=== PATIENT | female | born 1975 | race Caucasian/White ===

== ENCOUNTER 2020-06-19 10:47 | Outpatient (CLI) | payer MEDICARE, MEDICAID, SELFPAY ==
[2020-06-19 11:20] LABS: Basophils Absolute Auto 0.1 K/mm3 (0.0-0.1); Basophils Percent Auto 0.6 % (0.2-1.2); Eosinophils Absolute Auto 0.2 K/mm3 (0-0.3); Eosinophils Percent Auto 2.7 % (0-4.4); Hematocrit 42.3 % (37.0-47.0); Hemoglobin 13.6 g/dL (12.0-15.0); Immature Granulocyte Absolute 0.04 K/mm3 (0.00-0.031); Immature Granulocyte Percent A 0.5 % (0-0.5); Lymphocytes Absolute Auto 2.25 K/mm3 (0.9-3.2); Lymphocytes Percent Auto 27.1 % (18.3-44.2); Mean Corpuscular HGB Conc 32.2 g/dl (32-36); Mean Corpuscular Hemoglobin 28.5 pg (26-34); Mean Corpuscular Volume 88.7 fl (80-100); Mean Platelet Volume 10.5 fl (7.4-10.4); Monocytes Absolute Auto 0.6 K/mm3 (0.1-0.6); Monocytes Percent Auto 7.1 % (2.6-8.5); Neutrophils Absolute Auto 5.1 K/mm3 (1.3-6.7); Platelet Count Result 272 k/mm3 (150-375); Red Blood Count 4.77 M/mm3 (4.2-5.4); Red Cell Distribution Width 13.6 % (11.5-14.5); White Blood Count 8.3 K/mm3 (4.5-10.0)
[2020-06-19 11:38] LABS: Anion Gap 5 mmol/L (8-16); Blood Urea Nitrogen 11 mg/dL (7-17); Calcium 8.9 mg/dL (8.4-10.2); Carbon Dioxide 36 mmol/L (22-30); Chloride 96 mmol/L (98-107); Estimated Glomerular Filt Rate > 60; Glucose 234 mg/dL (65-105); Potassium 4.4 mmol/L (3.4-5.0); Sodium 137 mmol/L (137-145)
[2020-06-19 11:41] LABS: NT Pro B Type Natriuretic Pept 178 PG/ML (5-100)
== END 2020-06-19 10:48 | disposition home or self-care (01) ==
PROVIDERS: PCP Family Medicine; Visit Provider Family Medicine
DX: R60.1 Generalized edema (principal)
CPT/HCPCS: 36415; 80048; 83880; 85025

== ENCOUNTER 2020-07-19 07:59 | Outpatient (CLI) | payer MEDICARE, MEDICAID, SELFPAY ==
--- NOTE | 2020-07-19 08:08 | ECHO_ITS ---
Patient Info Name: Diane Hua Age: 45 years : 1975 Gender: Female Ht: 66 in Wt: 351 lbs BSA: 2.82 m2 HR: 85 bpm BP: 130 / 97 mmHg Technical Quality: Poor Exam Date: 07/19/2020 8:26 AM Exam Location: [facility] Pulmonary Patient Status: Outpatient Admit Date: 07/19/2020 Staff Ordering Physician: Pavan Ramirez MD Public Speaking Coach: Wiley Cardozo RDCS, RT Attending Provider: Pavan Ramirez MD Referring Physician: James GRAJEDA; Exam Type: CA echo doppler color flow Study Info Indications R60.1 - Generalized edema Complete two-dimensional, color flow and Doppler transthoracic echocardiogram is performed. Summary 1. Complete two-dimensional, color flow and Doppler transthoracic echocardiogram is performed. 2. Technically suboptimal study due to poor sonographic images. Subcostal images were not acquired. 3. Left ventricular chamber dimension is normal. 4. Left ventricular systolic function is normal, estimated at 60-65%. 5. The left ventricular diastolic function is normal. 6. E/e' 4 is not elevated. Left Ventricle Technically suboptimal study due to poor sonographic images. Subcostal images were not acquired. E/e' 4 is not elevated. Left ventricular chamber dimension is normal. Left ventricular systolic function is normal, estimated at 60-65%. The left ventricular diastolic function is normal. Right Ventricle Right ventricular chamber dimension is not well visualized. Left Atria Left atrial chamber dimension is normal. Right Atria Right atrial chamber dimension is not well visualized. Aortic Valve The aortic valve is trileaflet. There is no aortic valve stenosis. There is no aortic valve regurgitation. Pulmonic Valve There is no pulmonic regurgitation. Mitral Valve There is no mitral valve stenosis. There is no mitral valve regurgitation. Tricuspid Valve There is no tricuspid valve regurgitation. Pericardium/Pleural There is no pericardial effusion. Inferior Vena Cava Inferior vena cava is not well visualized. Aorta The aortic root size at the sinus of Valsalva is normal. Left Ventricular Outflow Tract Name Value Normal LVOT 2D LVOT Diameter 2.1 cm LVOT Doppler LVOT Peak Gradient 4 mmHg LVOT Mean Gradient 2 mmHg LVOT VTI 16 cm LVOT VTI/AV VTI Ratio 0.8 LVOT Stroke Volume 58 ml LVOT CO 4.6 l/min LVOT CI 1.6 l/min/m2 Mitral Valve Name Value Normal MV Doppler MV Decel [place] 251 cm/s2 MV PHT 67 ms MV Area (PHT) 3.3 cm2 4.0-5.0 MV Diastolic Function
== END 2020-07-19 08:00 | disposition home or self-care (01) ==
PROVIDERS: PCP Family Medicine; Visit Provider Family Medicine
DX: R60.1 Generalized edema (principal)
CPT/HCPCS: 93306

== ENCOUNTER 2020-10-05 15:00 | Outpatient (CLI) | payer MEDICARE, MEDICAID, SELFPAY ==
[2020-10-05 15:56] LABS: Cholesterol 239 mg/dL (0-200); HDL Direct 38 mg/dL; Triglycerides 293 mg/dL (<150)
[2020-10-05 16:07] LABS: LDL Cholesterol Direct 138 mg/dL
[2020-10-05 16:37] LABS: Alanine Aminotransferase 29 U/L (4-35); Albumin Level 4.1 g/dL (3.5-5.1); Alkaline Phosphatase 73 U/L (38-126); Anion Gap 13 mmol/L (8-16); Aspartate Amino Transferase 39 U/L (14-36); Bilirubin,Total 0.7 mg/dL (0.2-1.3); Blood Urea Nitrogen 25 mg/dL (7-17); Calcium 9.7 mg/dL (8.4-10.2); Carbon Dioxide 37 mmol/L (22-30); Chloride 84 mmol/L (98-107); Estimated Glomerular Filt Rate 23; Glucose 220 mg/dL (65-105); Potassium 2.3 mmol/L (3.4-5.0); Sodium 134 mmol/L (137-145)
[2020-10-05 17:19] LABS: Free T4 Free Thyroxine 1.35 ng/mL (0.78-2.19)
== END 2020-10-05 15:01 | disposition home or self-care (01) ==
PROVIDERS: PCP Family Medicine; Referring Provider Physician Assistant Medical; Visit Provider Internal Medicine Endocrinology, Diabetes & Metabolism
DX: E11.65 Type 2 diabetes mellitus with hyperglycemia (principal); E78.5 Hyperlipidemia, unspecified; E87.6 Hypokalemia
CPT/HCPCS: 36415; 80053; 80061; 84439; 84443

== ENCOUNTER 2021-01-25 11:57 | Outpatient (CLI) | payer MEDICARE, MEDICAID, SELFPAY ==
[2021-01-25 13:21] LABS: Pregnancy On Board Control Positive; Urine Pregnancy Test Negative
[2021-01-25 14:07] LABS: Alanine Aminotransferase 16 U/L (4-35); Albumin Level 4.5 g/dL (3.5-5.1); Alkaline Phosphatase 103 U/L (38-126); Aspartate Amino Transferase 20 U/L (14-36); Bilirubin,Total 0.5 mg/dL (0.2-1.3); Blood Urea Nitrogen 19 mg/dL (7-17); Calcium 9.6 mg/dL (8.4-10.2); Carbon Dioxide > 40 mmol/L (22-30); Chloride 90 mmol/L (98-107); Estimated Glomerular Filt Rate 35; Glucose 140 mg/dL (65-110); Potassium 3.1 mmol/L (3.4-5.0); Sodium 138 mmol/L (137-145)
[2021-01-25 16:58] LABS: Creatinine Urine 177.8 mg/dL
[2021-01-25 17:02] LABS: MALB Creatinine Ratio 7.6 mg/g (0-30); Microalbumin Urine Random 13.5 mg/L (0-16.7)
[2021-01-29 07:07] LABS: FSH 23.6 mIU/mL (***)
[2021-01-31 15:52] LABS: Estrogen 271.8 pg/mL
== END 2021-01-25 11:58 | disposition home or self-care (01) ==
PROVIDERS: PCP Family Medicine; Visit Provider Internal Medicine Endocrinology, Diabetes & Metabolism
DX: E11.65 Type 2 diabetes mellitus with hyperglycemia (principal); E78.5 Hyperlipidemia, unspecified; N91.2 Amenorrhea, unspecified
CPT/HCPCS: 36415; 80053; 81025; 82043; 82672; 83001

== ENCOUNTER 2021-07-16 10:13 | Outpatient (CLI) | payer MEDICARE, MEDICAID, SELFPAY ==
[2021-07-16 11:03] LABS: Alanine Aminotransferase 17 U/L (4-35); Albumin Level 4.3 g/dL (3.5-5.1); Alkaline Phosphatase 101 U/L (38-126); Anion Gap 7 mmol/L (8-16); Aspartate Amino Transferase 24 U/L (14-36); Bilirubin,Total 0.4 mg/dL (0.2-1.3); Blood Urea Nitrogen 30 mg/dL (7-17); Calcium 9.1 mg/dL (8.4-10.2); Carbon Dioxide 36 mmol/L (22-30); Chloride 90 mmol/L (98-107); Cholesterol 211 mg/dL (0-200); Estimated Glomerular Filt Rate 38; Glucose 212 mg/dL (65-110); HDL Direct 34 mg/dL; Sodium 133 mmol/L (137-145); Triglycerides 311 mg/dL (<150)
[2021-07-16 11:09] LABS: Creatinine Urine 181.4 mg/dL
[2021-07-16 11:12] LABS: MALB Creatinine Ratio 44.3 mg/g (0-30); Microalbumin Urine Random 80.3 mg/L (0-16.7)
[2021-07-16 11:15] LABS: LDL Cholesterol Direct 123 mg/dL
[2021-07-16 12:01] LABS: Free T4 Free Thyroxine 1.18 ng/mL (0.78-2.19)
== END 2021-07-16 10:14 | disposition home or self-care (01) ==
PROVIDERS: PCP Family Medicine; Visit Provider Nurse Practitioner Family
DX: E11.65 Type 2 diabetes mellitus with hyperglycemia (principal); E78.5 Hyperlipidemia, unspecified
CPT/HCPCS: 36415; 80053; 80061; 82043; 82607; 84439; 84443

== ENCOUNTER 2022-11-06 17:16 | Outpatient (CLI) | payer MEDICARE, MEDICAID, SELFPAY ==
[2022-11-06 17:39] LABS: Basophils Percent Auto 0.5 % (0.2-1.2); Eosinophils Absolute Auto 0.2 K/mm3 (0-0.3); Eosinophils Percent Auto 1.9 % (0-4.4); Hematocrit 42.3 % (37.0-47.0); Hemoglobin 13.7 g/dL (12.0-15.0); Immature Granulocyte Absolute 0.03 K/mm3 (0.00-0.031); Immature Granulocyte Percent A 0.4 % (0-0.5); Lymphocytes Absolute Auto 1.98 K/mm3 (0.9-3.2); Lymphocytes Percent Auto 23.9 % (18.3-44.2); Mean Corpuscular HGB Conc 32.4 g/dl (32-36); Mean Corpuscular Hemoglobin 28.7 pg (26-34); Mean Corpuscular Volume 88.5 fl (80-100); Mean Platelet Volume 9.8 fl (7.4-10.4); Monocytes Absolute Auto 0.7 K/mm3 (0.1-0.6); Monocytes Percent Auto 8.1 % (2.6-8.5); Neutrophils Absolute Auto 5.4 K/mm3 (1.3-6.7); Neutrophils Percent Auto 65.2 % (45.5-73.1); Platelet Count Result 357 k/mm3 (150-375); Red Blood Count 4.78 M/mm3 (4.2-5.4); Red Cell Distribution Width 13.3 % (11.5-14.5); White Blood Count 8.3 K/mm3 (4.5-10.0)
[2022-11-06 17:49] LABS: Alanine Aminotransferase 22 U/L (6-35); Albumin Level 4.2 g/dL (3.5-5.1); Alkaline Phosphatase 91 U/L (38-126); Anion Gap 7 mmol/L (8-16); Aspartate Amino Transferase 20 U/L (14-36); Bilirubin,Total 0.4 mg/dL (0.2-1.3); Blood Urea Nitrogen 20 mg/dL (7-17); CRP 1.8 mg/dL (<1.0); Calcium 9.1 mg/dL (8.4-10.2); Carbon Dioxide 28 mmol/L (22-30); Chloride 103 mmol/L (98-107); Estimated Glomerular Filt Rate 49; Glucose 79 mg/dL (65-110); Sodium 138 mmol/L (137-145)
[2022-11-06 18:26] LABS: Erythrocyte Sedimentation Rate 21 mm/hr (0-20)
[2022-11-06 18:49] LABS: Free T4 Free Thyroxine 1.32 ng/mL (0.78-2.19)
== END 2022-11-06 17:17 | disposition home or self-care (01) ==
LOC: ANHLAB 17:18
PROVIDERS: PCP Family Medicine; Visit Provider Nurse Practitioner Family
DX: E03.9 Hypothyroidism, unspecified (principal); M79.89 Other specified soft tissue disorders; Z87.2 Personal history of diseases of the skin and subcutaneous tissue; E11.65 Type 2 diabetes mellitus with hyperglycemia; N18.9 Chronic kidney disease, unspecified
CPT/HCPCS: 36415; 80053; 84439; 84443; 85025; 85652; 86140

== ENCOUNTER 2023-07-13 09:57 | Outpatient (CLI) | payer MEDICARE, MEDICAID, SELFPAY ==
[2023-07-13 10:29] LABS: Hematocrit 44.8 % (37.0-47.0); Hemoglobin 14.4 g/dL (12.0-15.0); Mean Corpuscular HGB Conc 32.1 g/dl (32-36); Mean Corpuscular Hemoglobin 28.9 pg (26-34); Mean Corpuscular Volume 89.8 fl (80-100); Mean Platelet Volume 10.1 fl (7.4-10.4); Platelet Count Result 327 k/mm3 (150-375); Red Blood Count 4.99 M/mm3 (4.2-5.4); Red Cell Distribution Width 13.9 % (11.5-14.5); White Blood Count 8.6 K/mm3 (4.5-10.0)
[2023-07-13 10:44] LABS: Alanine Aminotransferase 27 U/L (6-35); Albumin Level 4.2 g/dL (3.5-5.1); Alkaline Phosphatase 95 U/L (38-126); Anion Gap 7 mmol/L (4-12); Aspartate Amino Transferase 23 U/L (14-36); Bilirubin,Total 0.5 mg/dL (0.2-1.3); Blood Urea Nitrogen 22 mg/dL (7-17); CRP 1.1 mg/dL (<1.0); Calcium 9.4 mg/dL (8.4-10.2); Carbon Dioxide 30 mmol/L (22-30); Chloride 102 mmol/L (98-107); Estimated Glomerular Filt Rate 48; Glucose 103 mg/dL (65-110); Potassium 4.1 mmol/L (3.4-5.0); Sodium 139 mmol/L (137-145)
[2023-07-13 10:54] LABS: Hemoglobin A1C 7.2 % (<5.7)
[2023-07-13 11:02] LABS: Free T4 Free Thyroxine 1.14 ng/mL (0.78-2.19); Vitamin D 25 Hydroxy 44.9 ng/mL
[2023-07-13 11:07] LABS: Creatinine Urine 116.2 mg/dL
[2023-07-13 11:11] LABS: MALB Creatinine Ratio 29.3 mg/g (0-30)
[2023-07-13 11:44] LABS: Erythrocyte Sedimentation Rate 15 mm/hr (0-20)
== END 2023-07-13 09:58 | disposition home or self-care (01) ==
LOC: ANHLAB 10:01
PROVIDERS: PCP Family Medicine; Visit Provider Family Medicine
DX: E03.9 Hypothyroidism, unspecified (principal); E11.29 Type 2 diabetes mellitus with other diabetic kidney complication; R80.9 Proteinuria, unspecified; R10.84 Generalized abdominal pain; R79.82 Elevated C-reactive protein (CRP); R70.0 Elevated erythrocyte sedimentation rate; N18.31 Chronic kidney disease, stage 3a; E55.9 Vitamin D deficiency, unspecified; E11.65 Type 2 diabetes mellitus with hyperglycemia; Z79.4 Long term (current) use of insulin
CPT/HCPCS: 36415; 80048; 80076; 82043; 82306; 83036; 84439; 84443; 85027; 85652; 86140

== ENCOUNTER 2023-09-02 01:12 | Day surgery (SDC) | payer MEDICARE, MEDICAID, SELFPAY ==
[2023-08-31 11:12] VITALS: BMI 51.1
--- NOTE | 2023-08-31 11:23 | PC.NURSE ---
Report to the Outpatient Waiting Room, entrance under the green pavilion located off [facility], at time _0830_ on date _[id number]_. Planned Procedure Time: _1030_. Time changes happen often and if your time is changed the preop area will call you the afternoon before. - You and your visitor will be asked to self-screen and do not enter if you have any COVID symptoms. - A mask is optional within the hospital at this time. Patients may have clear liquids (water, carbonated beverages, clear teas, apple juice) until 3 hours prior to surgery with a maximum of 20 ounces. - No food from midnight until time of surgery Take the following medications with a SIP of water the morning of surgery: ___Escitalopram, Levothyroxine and inhalers. DO NOT STOP ANY OF YOUR OTHER PRESCRIPTION MEDICATIONS PRIOR TO SURGERY ?EXCEPT THE FOLLOWING Medications to discontinue per physician ___No insulin or diabetic medication on the day of surgery. Date to take last dose Please no make-up, nail solomon islander, hairspray, perfume, deodorant, or body powder the day of surgery. No jewelry (including any body piercings) or valuables the day of surgery, leave them at home. Please take a shower or bath the night before, or the morning of, surgery with an antibacterial soap. Wear comfortable, loose fitting clothing. - Jewelry must be removed prior to entering the operating room. Rings and piercings that are not removed may be cut off. - The hospital will not accept responsibility for valuables. - Please leave all valuables, including medications, at home the day of surgery. If you are going home after surgery, a licensed lift driver must drive you home. - NO public transportation without another adult if you receive anesthesia. - We recommend that an adult stay with you for 24 hours following discharge. - We also recommend that you do not drive, make important decision, drink alcoholic beverages, or take any drugs that were not prescribed by your health care provider for at least 24 hours after your discharge time. Follow any additional instructions given to you from your surgeon. If you or anyone in your household have experienced Covid symptoms in the past week, please notify your surgeon or the nurse liaison at the phone number below for possible testing. Telephone instructions given to __Diane___and asked if any additional questions and then verbalized understanding. Patient advised to call surgeon office or pre surgery nurse liaison [phone] if any additional questions.
--- NOTE | 2023-08-31 11:39 | PC.NURSE ---
Report to the Outpatient Waiting Room, entrance under the green pavilion located off [facility], at time _0830_ on date _[phone]_. Planned Procedure Time: _1030_. Time changes happen often and if your time is changed the preop area will call you the afternoon before. - You and your visitor will be asked to self-screen and do not enter if you have any COVID symptoms. - A mask is optional within the hospital at this time. - No food or drink from midnight until time of surgery Take the following medications with a SIP of water the morning of surgery: __Escitalopram, Levothyroxine and inhalers. DO NOT STOP ANY OF YOUR OTHER PRESCRIPTION MEDICATIONS PRIOR TO SURGERY ?EXCEPT THE FOLLOWING Medications to discontinue per physician ____No diabetic medication morning of surgery. Please no make-up, nail palauan, hairspray, perfume, deodorant, or body powder the day of surgery. No jewelry (including any body piercings) or valuables the day of surgery, leave them at home. Please take a shower or bath the night before, or the morning of, surgery with an antibacterial soap. Wear comfortable, loose fitting clothing. - Jewelry must be removed prior to entering the operating room. Rings and piercings that are not removed may be cut off. - The hospital will not accept responsibility for valuables. - Please leave all valuables, including medications, at home the day of surgery. If you are going home after surgery, a licensed certified driver examiner must drive you home. - NO public transportation without another adult if you receive anesthesia. - We recommend that an adult stay with you for 24 hours following discharge. - We also recommend that you do not drive, make important decision, drink alcoholic beverages, or take any drugs that were not prescribed by your health care provider for at least 24 hours after your discharge time. Follow any additional instructions given to you from your surgeon. If you or anyone in your household have experienced Covid symptoms in the past week, please notify your surgeon or the nurse liaison at the phone number below for possible testing. Telephone instructions given to __Diane__and asked if any additional questions and then verbalized understanding. Patient advised to call surgeon office or pre surgery nurse liaison [phone] if any additional questions.
[2023-09-02] VITALS (13 sets, daily range): BP systolic 101–150; BP diastolic 60–95; PULSE 70–85; RESP 12–20; TEMP 36.2–36.4; O2SAT 93–100; BMI 50.9
--- NOTE | 2023-09-02 07:09 | WPDHPUPDATE1 ---
History and Physical Update Update Date/Time: 09/02/23 07:09 Patient seen and examined in pre-operative holding area. No interval change in medical history or symptoms. Patient recalls previous discussion of benefits and alternatives to procedure. Continues to desire to proceed with infraumbilical panniculectomy and excess flank tisue excision . Reviewed procedure, post-op expectations and risks including but not limited to bleeding, infection, asymmetry, undesireable cosmetic appearance, partial/total loss of umbilicus or skin, seroma, no change or worsening of symptoms. I discussed the possible use of assistants and their participation in the case. Patient stated understanding and signed the consent form wishing to proceed.
--- NOTE | 2023-09-02 07:10 | P.OP_ITS ---
Procedure Note - Detailed Date of Procedure 09/02/23 Pre-op Diagnosis Excess Redudent Skin Subcutaneous Tissue Post-op Diagnosis Same Procedure Performed infraumbilial panniculectomy and excess flank/hip skin/tissue excision Surgeon Shila Mas MD Semi Truck Driver lincoln martini pa-c Anesthesia General Description of Procedure Patient was seen in the preoperative holding area where the pannus was marked and consent form signed. She was taken back to the operating room and placed on the table in supine position. Time-out was performed with Anesthesia, surgeon, and staff agreeing on patient's name, site, and surgery to be performed. SCDs were placed on the lower extremities and inflated. Antibiotics were given IV. After general anesthesia was administered the abdomen was prepped and draped in the usual sterile fashion. Using a 10 blade scalpel I proceeded with making a vertical incision down the midline below umbilicus to the lower incision which was measured at 7 cm above the vaginal introitus on upward stretch. This incision was carried out laterally just below the intertrigal fold and extending significantly past the anterior superior iliac spines to include excess skin and tissue of the hips and flanks. This was done through skin and dermis. Using Bovie cautery I proceeded with dissection down through Porsche's fascia and leaving a small amount of subcutaneous tissue above her rectus fascia. I proceeded with undermining this skin flaps and transecting it. My preoperative markings for the superior aspect appeared to be appropriate and then I made this incision with 10 blade scalpel. I proceeded with resection of the pannus with Bovie cautery. Large perforating vessels were ligated with 2 0 Vicryl ties and hemoclips. I irrigated with normal saline. Hemostasis was obtained with Bovie cautery. [place] clamps were used to provisionally tailor tacked the superior skin flap to the inferior aspect of the incision. There appeared to be reasonable symmetry and position. There was slight bleeding more fullness on the right side of the abdomen which was commensurate with the patient's preoperative asymmetry but this had been improved. I placed 10 flat JEISON drains bilaterally and proceedd with closing porsche's fascia with 2-0 vicryl. 2-0 Vicryl was used for subcutaneous and dermal closure. 3-0 Vicryl was also used for dermal closure. 4-0 Monocryl was used for subcuticular closure. The drains were hooked to bulb suction. I injected 40 cc of 1% lidocaine with epinephrine and 0.5% Marcaine plain along the incision. A dressing of Mastisol, Steri-Strips, 4x4s, ABDs and abdominal binder was then placed. The patient was awakened from anesthesia and transferred to the recovery room in stable condition. Complications: None Estimated blood loss: 100 cc Disposition: Patient tolerated the procedure well and will likely be going home today. Lincoln Martini PA-C was essential for positioning, retraction,, hemostasis, closure and dressing placement. [facility] Billing Surgery - Charge Forward: Surgery Billing ([id number], for lincoln)
--- NOTE | 2023-09-02 08:29 | WPDANESEPPF ---
Anes - Initial Pre Proc Eval Procedure: Operation Date: 09/02/23 10:30 Proposed Procedures p Panniculectomy and Excision Excess Tissue of Hip / Flank - Shila Mas MD Date/Time: 09/02/23 08:29 Surgeon: Shila Mas MD Pre Op Diagnosis: Excess Redundant Skin Subcutaneous Tissue Patient Data Age: 48 Gender: F Height: 1.65 m Weight: 139.5 kg Allergies Allergy/AdvReac Type Severity Reaction Status Date / Time fluticasone Allergy Intermediate Swelling Verified 08/31/23 11:08 [From Advair Diskus] of Lip/Tongue/Throat salmeterol Allergy Intermediate unknown Verified 08/31/23 11:08 sulfamethoxazole Allergy Mild unknown Verified 08/31/23 11:08 trimethoprim Allergy Mild unknown Verified 08/31/23 11:08 amoxicillin Allergy Unknown unknown Verified 08/31/23 11:08 Home Medications Medication Instructions Recorded Confirmed Type lancets (Lancets,Thin) #100 ea 09/26/19 08/31/23 Rx blood-glucose meter #1 ea 06/19/20 08/31/23 Rx blood sugar diagnostic (Blood #200 ea 09/18/20 08/31/23 Rx Glucose Test strips) pen needle, diabetic 32 gauge x #200 ea 09/18/20 08/31/23 Rx 5/32 (BD Aileen 2nd Gen Pen Needle) albuterol sulfate 90 mcg/actuation 1 inh inhalation Q4-6H PRN 12/18/20 08/31/23 Rx aerosol inhaler (ProAir HFA) shortness of breath or wheezing #18 grams OneTouch Verio test strips (blood #400 ea 07/24/21 08/31/23 Rx sugar diagnostic) potassium chloride 20 mEq 40 meq PO DAILY #60 tabs 07/07/22 08/31/23 Rx tablet,extended release(part/cryst) (Klor-Con M) azelastine 137 mcg (0.1 %) nasal 1 spray intranasal Q12H #30 mL 10/02/22 08/31/23 Rx spray aerosol atorvastatin 20 mg tablet 20 mg PO DAILY 90 days #90 tabs 11/06/22 08/31/23 Rx fluticasone propionate 50 See Rx Instructions .Route 11/06/22 08/31/23 Rx mcg/actuation nasal .COMPLEX #16 grams spray,suspension montelukast 10 mg tablet See Rx Instructions .Route 11/06/22 08/31/23 Rx .COMPLEX #30 ea albuterol sulfate 2.5 mg/3 mL 2.5 mg (3 mL) inhalation BID PRN 11/13/22 08/31/23 Rx (0.083 %) solution for nebulization shortness of breath or wheezing #180 mL alprazolam 0.25 mg tablet (Xanax) 0.25 mg PO DAILY PRN anxiety #60 03/27/23 08/31/23 Rx tabs dapagliflozin propanediol 10 mg 10 mg PO DAILY #90 tabs 03/27/23 08/31/23 Rx tablet (Farxiga) semaglutide 1 mg/dose (4 mg/3 mL) 1 mg (0.75 mL) subcut WEEKLY #9 mL 03/27/23 08/31/23 Rx subcutaneous pen injector (Ozempic) escitalopram oxalate 10 mg tablet 10 mg PO DAILY #90 tabs 06/21/23 08/31/23 Rx budesonide 180 mcg/actuation 1 inh inhalation DAILY #1 ea 07/03/23 08/31/23 Rx breath activated powder inhaler (Pulmicort Flexhaler) insulin aspart U-100 100 unit/mL See Rx Instructions subcut 08/03/23 08/31/23 Rx (3 mL) subcutaneous pen (Novolog .COMPLEX Diabetes #15 mL FlexPen U-100 Insulin aspart) insulin degludec 100 unit/mL (3 30 unit (0.3 mL) subcut DAILY 90 08/03/23 08/31/23 Rx mL) subcutaneous pen (Tresiba days #27 mL FlexTouch U-100 insulin) levothyroxine 75 mcg tablet 75 mcg PO DAILY #90 tabs 08/03/23 08/31/23 Rx lisinopril 10 mg tablet 10 mg PO DAILY #90 tabs 08/03/23 08/31/23 Rx metolazone 5 mg tablet 5 mg PO DAILY PRN Increased edema 08/03/23 08/31/23 Rx #90 tabs furosemide 40 mg tablet 80 mg PO QAM #180 tabs 08/23/23 08/31/23 Rx oxycodone-acetaminophen 5 mg-325 1 tablet PO Q6H PRN pain #12 tabs 09/02/23 Rx mg tablet (Percocet) Patient hx anesthesia problems: none Family hx anesthesia problems: none Results Review: All pre-operative results and documents have been reviewed as part of the pre-operative evaluation. [facility] Past Medical History Medical History (Updated 09/02/23 @ 08:30 by Terence Ford DO) Abdominal pain Abdominal pannus Adult body mass index 40 and over Amenorrhea Anasarca Anasarca Anxiety Anxiety and depression Asthma Bilateral carpal tunnel syndrome BMI 60.0-69.9, adult BMI greater
--- NOTE | 2023-09-02 08:36 | ECG_ITS ---
SEE SCANNED COPY FOR CONFIRMED REPORT MTDD
[2023-09-02] MEDS: LACTATED RINGERS 1,000 ML 30 ML IV CONT ×2 (08:45→12:37)
[2023-09-02 09:09] LABS: Glucose Point of Care 131 mg/dl (65-105)
[2023-09-02 09:13] LABS: Prothrombin Time 13.2 Seconds (11.1-14.7)
[2023-09-02 09:14] LABS: Partial Thromboplastin Time 28.4 Seconds (22.3-36.8)
[2023-09-02] MEDS: ceFAZolin 3 GM/D5W 100 ML 100 ML IVPB (09:49)
[2023-09-02] MEDS: LIDO 1%/EPINEPHRINE 1:100,000 50 ML VIAL 30 ML INFILTRATE (10:26)
[2023-09-02] MEDS: BUPivacaine HCL 0.5% 10 ML AMP 30 ML INFILTRATE (10:27)
[2023-09-02] MEDS: fentaNYL CITRATE INJ (*CRX) 100 MCG/2 ML VIAL 25 MCG IV PUSH ×4 (12:59→13:52)
[2023-09-02 13:36] LABS: Glucose Point of Care 197 mg/dl (65-105)
[2023-09-02] MEDS: oxyCODONE HCL (*CRX) 5 MG TAB IR PO (13:49)
== END 2023-09-02 15:55 | disposition home or self-care (01) ==
PROVIDERS: Anesthesiology; PCP Family Medicine; Visit Provider Plastic Surgery
PROC: 0JB80ZZ Excision of Abdomen Subcutaneous Tissue and Fascia, Open Approach (ICD-10-PCS; CPT 15830; principal; 2023-09-02 10:30)
DX: L98.7 Excessive and redundant skin and subcutaneous tissue (principal); F41.8 Other specified anxiety disorders; E11.9 Type 2 diabetes mellitus without complications; E03.9 Hypothyroidism, unspecified; E53.8 Deficiency of other specified B group vitamins; Z86.73 Personal history of transient ischemic attack (TIA), and cerebral infarction without residual deficits; E66.01 Morbid (severe) obesity due to excess calories; Z68.43 Body mass index [BMI] 50.0-59.9, adult; F12.90 Cannabis use, unspecified, uncomplicated; Z79.51 Long term (current) use of inhaled steroids; Z79.84 Long term (current) use of oral hypoglycemic drugs; Z79.85 Long-term (current) use of injectable non-insulin antidiabetic drugs; Z79.4 Long term (current) use of insulin
CPT/HCPCS: 15830; 15834; 36415; 82948; 85610; 85730; 88304; 93005; A9270; C1713; J0171; J0330; J0690; J1100; J2405; J2704; J3010; J7120

== ENCOUNTER 2023-09-15 09:06 | Outpatient (CLI) | payer MEDICARE, MEDICAID, SELFPAY ==
[2023-09-15 09:35] LABS: Anion Gap 8 mmol/L (4-12); Blood Urea Nitrogen 21 mg/dL (7-17); Calcium 9.2 mg/dL (8.4-10.2); Carbon Dioxide 26 mmol/L (22-30); Chloride 104 mmol/L (98-107); Estimated Glomerular Filt Rate 44; Glucose 124 mg/dL (65-110); Potassium 4.2 mmol/L (3.4-5.0); Sodium 138 mmol/L (137-145)
[2023-09-15 10:06] LABS: Free T4 Free Thyroxine 1.17 ng/mL (0.78-2.19)
== END 2023-09-15 09:07 | disposition home or self-care (01) ==
PROVIDERS: PCP Family Medicine; Visit Provider Family Medicine
DX: E03.9 Hypothyroidism, unspecified (principal); N18.31 Chronic kidney disease, stage 3a
CPT/HCPCS: 36415; 80048; 84439; 84443

== ENCOUNTER 2024-07-21 10:36 | Outpatient (CLI) | payer MEDICARE, MEDICAID, SELFPAY ==
[2024-07-21 11:25] LABS: Basophils Absolute Auto 0.1 K/mm3 (0.0-0.1); Eosinophils Absolute Auto 0.6 K/mm3 (0-0.3); Eosinophils Percent Auto 6.5 % (0-4.4); Hematocrit 43.3 % (37.0-47.0); Hemoglobin 13.9 g/dL (12.0-15.0); Immature Granulocyte Absolute 0.03 K/mm3 (0.00-0.031); Immature Granulocyte Percent A 0.3 % (0-0.5); Lymphocytes Percent Auto 30.8 % (18.3-44.2); Mean Corpuscular HGB Conc 32.1 g/dl (32-36); Mean Corpuscular Hemoglobin 29.2 pg (26-34); Mean Platelet Volume 10.3 fl (7.4-10.4); Monocytes Absolute Auto 0.6 K/mm3 (0.1-0.6); Monocytes Percent Auto 6.4 % (2.6-8.5); Platelet Count Result 273 k/mm3 (150-375); Red Blood Count 4.76 M/mm3 (4.2-5.4); Red Cell Distribution Width 13.9 % (11.5-14.5); White Blood Count 9.1 K/mm3 (4.5-10.0)
--- OUTSIDE RECORDS SUMMARY | 2024-07-21 11:25 | XMS_ITS | Clinical Summary ---
Author Organization [facility] Address [address] [place] [address] Care Team Providers Care Loan Reviewer Name Role Phone Pavan Ramirez MD Primary Care Provider + [phone] Allergies Active Allergy Reactions Criticality Noted Date Comments Fluticasone Propion-Salmeterol Swelling Medium 06/25/2018 Swelling of tongue Amoxicillin Other (See comments) Low 01/30/2020 Patient is not allergic but does not respond to amoxicillin Medications montelukast (SINGULAIR) 10 mg tablet Take 10 mg by mouth nightly. Active fluticasone (FLONASE) 50 mcg/actuation nasal spray Administer 2 sprays into each nostril 2 (two) times a day Active albuterol (PROVENTIL,VENTOLI N) 2.5 mg/0.5 mL solution for nebulizationIndica tions:Bronchospasm Prevention 2.5 mg as needed. Active furosemide (LASIX) 40 mg tablet Take 1 tablet (40 mg total) by mouth 3 (three) times a day. 90 tablet 06/12/19 18 Active Additional Information Patient taking differently: 80 mgoralDaily, Reported on 09/27/2020 ALPRAZolam (XANAX) 0.25 mg tablet Take 0.25 mg by mouth nightly as needed 01/17/20 Active escitalopram (LEXAPRO) 10 mg tablet Take 10 mg by mouth nightly 01/16/20 20 Active gabapentin (NEURONTIN) 300 mg capsule Take 300 mg by mouth nightly 01/16/20 20 Active meloxicam (MOBIC) 15 mg tablet Take 15 mg by mouth nightly 01/16/20 20 Active metFORMIN (GLUCOPHAGE) 500 mg tablet Take 500 mg by mouth 2 (two) times a day with meals 01/16/20 20 Active Asmanex Twisthaler 110 mcg/ actuation (30) inhaler Inhale 2 puffs daily 01/16/20 20 Active albuterol (PROAIR RESPICLICK) 90 mcg/actuation inhaler Inhale 2 puffs every 6 (six) hours as needed for wheezing Active insulin lispro (HumaLOG, ADMELOG) 100 unit/mL vial for injection Inject 6 Units under the skin 3 (three) times a day before meals Active insulin glargine (TOUJEO) 300 unit/mL (1.5 mL) pen for injection Inject 20 Units under the skin nightly Active atorvastatin (LIPITOR) 10 mg tablet Take 10 mg by mouth daily Active metOLazone (ZAROXOLYN) 2.5 mg tablet Take 2.5 mg by mouth daily Active NovoLOG 100 unit/mL (3 mL) pen for injection 10/04/19 21 Active azelastine (ASTELIN) 137 mcg (0.1 %) nasal spray 08/21/19 21 Active potassium chloride ER 20 mEq CR tablet Take 40 mEq by mouth daily 11/02/19 21 Active TRUEplus Insulin 1 mL 29 gauge x 1/2 syringe 08/21/19 21 Active ondansetron ODT (ZOFRAN-ODT) 4 mg disintegrating tablet Take 1 tablet (4 mg total) by mouth every 8 (eight) hours as needed for nausea or vomiting 20 tablet 07/31/19 22 Active methocarbamoL (ROBAXIN) 500 mg tablet Take 1 tablet (500 mg total) by mouth 4 (four) times a day as needed for muscle spasms 20 tablet 07/31/19 22 Active lidocaine (LIDODERM) 5 % Place 1 patch on the skin daily Remove & discard patch within 12 hours or as directed by . 30 patch 07/31/19 22 Active acetaminophen (TYLENOL) 500 mg tablet Take 2 tablets (1,000 mg total) by mouth every 8 (eight) hours as needed for pain for up to 20 doses 40 tablet 07/31/19 22 Active ondansetron (ZOFRAN) 4 mg tablet Take 1 tablet (4 mg total) by mouth every 6 (six) hours 12 tablet 05/23/19 25 Active Active Problems Problem Noted Date Diagnosed Date Periumbilical hernia 08/30/2020 Assessment & Plan (11/08/2020 9:09 AM CDT): Continue no heavy lifting for 6 weeks. Patient can wear the abdominal binder for comfort as long as she would like. Continue bowel regimen to avoid straining. Patient will call us back with any further questions or concerns. Assessment & Plan (08/30/2020 8:51 AM CDT): We have discussed surgical options fixing this via a minimally invasive approach with mesh implantation. Given her morbid obesity we have discussed the risk of recurrence. She has lost around 80 lb over the past year and is continually trying to lose weight. I discussed waiting longer as this would make her recovery, surgery and chance of recurrence better. However she is having such as significant amount of pain and discomfort because of the hernia she does not think that she can wait significantly longer period we will set her up for repair. We discussed the risk of having this have to be converted to an open procedure. We will have her get clearance ahead of time. She is in understanding of the plan. Acute respiratory acidosis 06/09/2017 Obstructive sleep apnea 06/09/2017 Physical deconditioning 06/09/2017 Type 2 diabetes mellitus wit hout complication, with long-term current use of insulin 06/09/2017 Abdominal wall cellulitis Morbid obesity Encounters Date Type Department Care Team Description 05/23/2024 2:09 AM UTILIZATION MANAGEMENT UM NURSE - 05/23/2024 4:43 AM [facility] Emergency [facility] Emergency Department [address] [place] [address] Diane Orta MD Influenza A (Primary Dx); COPD exacerbation (HCC) Discharge Disposition: Discharge to home or self care from Last 3 Months Immunizations Immunization Administration Dates Next Due Influenza, Quadrivalent, Spl it, Preservative Free, Intramuscular 05/07/2017 Surgical History Surgery Date Site/Laterality Comments SECTION 04/13/2009 - 04/12/2010 HERNIA REPAIR 10/11/2001 - 11/10/2001 XI Repair [facility] Medical History Medical History Date Comments Asthma Obesity Arthritis Cataract COPD (chronic obstructive pulmonary disease) (HC C) CHF (congestive heart failure) (HCC) Diabetes mellitus (HCC) Memory loss Stroke (HCC) 2015 Sleep apnea Type 2 diabetes mellitus (HCC) Family History Medical History Relation Name Comments Colon polyps Father Sleep apnea Father Williamson's disease Father's Sister Ovarian cancer Maternal Grandmother Asthma Mother Sleep apnea Mother Prostate cancer Paternal Grandfather Roberto's disease Paternal Grandmother Relation Name Status Comments Father Father's Sister Maternal Grandmother Mother Paternal Grandfather Paternal Grandmother 2 great uncles, 1 great aunt, 1 aunt have Williamson's disease. Social History Tobacco Use Types Packs/Day Years Used Date Smoking Tobacco: Former Cigarettes Q uit: 05/03/2009 Smokeless Tobacco: Never Alcohol Use Standard Drinks/Week Comments Yes 1 (1 standard drink = 0.6 oz pur e alcohol) AUDIT-C Answer Date Recorded Q1: How often do you have a drink containing alc ohol? Never 10/11/2020 Q2: How many drinks containi ng alcohol do you have on a typical day when you are drinking? 1 or 2 10/11/2020 Q3: How often do you have six or more drinks on one occasion? Never 10/11/2020 PHQ-2 Answer Date Recorded PHQ-2 Total Score (If total score is 3 or more points, staff should administer the PHQ-9) 0 10/12/2020 Personal Safety Answer Date Recorded Have you ever been in or are you currently in a harmful physical or emotional relationship or is someone making you feel afraid or unsafe? Denies 05/22/2024 Comments No Sex and Gender Information Value Date Recorded Sex Assigned at Not on file Legal Sex Female 2:26 AM UTILIZATION MANAGEMENT UM NURSE Gender Identity Not on file Sexual Orientation Not on file Obstetrics History Para Term AB IAB SAB Ectopic Multiple Livin g Live Births 2 1 1 Date Outcome GA Total Labor Labor/2nd/3rd Weight Sex Type Anes PTL Mame A1 A5 Name Clin Term Last Filed Vital Signs Vital Sign Reading Time Taken Comments Blood Pressure 130/70 05/22/2024 11:39 PM UTILIZATION MANAGEMENT UM NURSE Pulse 108 05/22/2024 11:39 PM UTILIZATION MANAGEMENT UM NURSE Temperature 38.2 C (100.8 F) 05/22/2024 11:39 PM UTILIZATION MANAGEMENT UM NURSE Respiratory Rate 20 05/22/2024 11:39 PM UTILIZATION MANAGEMENT UM NURSE Oxygen Saturation 97% 05/23/2024 3:32 AM UTILIZATION MANAGEMENT UM NURSE Inhaled Oxygen Concentration - - Weight 136.1 kg (300 lb) 05/22/2024 11:39 PM UTILIZATION MANAGEMENT UM NURSE Height 165.1 cm (5' 5 ) 05/22/2024 11:39 PM UTILIZATION MANAGEMENT UM NURSE Body Mass Index 49.92 05/22/2024 11:39 PM UTILIZATION MANAGEMENT UM NURSE Plan of Treatment Health Maintenance Due Date Last Done Comments Albumin Creatinine Ratio, Urine 1975 Cervical Cancer Screening 1975 Colon Cancer Screening-Colonoscopy 1975 Hepatitis C Screening 1975 Dilated Eye Exam 1977 Foot Exam 1977 Lipid Panel 1977 DTaP/Tdap/Td Vaccine (1 - Tdap) 1988 Hepatitis B Screening 1995 Regular Well Visit/Exam 18-64 1995 Pneumococcal vaccine <65 (1 of 2 - PCV) 1996 Hemoglobin A1C 11/30/2017 06/02/2017, 05/31/2017 Breast Cancer Screening-Mammogram 06/26/2019 019 Depression Screening 10/11/2021 10/11/2020 eGFR 07/29/2022 07/29/2021, 07/0 06/2020, 10/10/2020, Additional history exists Covid-19 Vaccine (2 - 2023-2 5 season) 2023 05/05/2021 Influenza Vaccine (Season Ended) 2024 05/07/19 18 Medical Devices Implanted Type Area Lean Engineer Device Identifier Shelf Expiration Date Model / Serial / Lot [employer] R Bard [id number] Ventralight St Sepra 8x6in Uncoated Monofilament Lightweight - [id number] Implanted:Qty: 1 on 10/12/2020 by Timoteo Allen MD at [facility] N/A: Abdomen [employer] 05/10/2022 [id number] / / [id number] Procedures Procedure Name Priority Date/Time Associated Diagnosis Comments XR CHEST PA LATERAL 2 VIEWS ED 05/23/2024 12:17 AM UTILIZATION MANAGEMENT UM NURSE INFLUENZA A/B, RSV, AND COVID-19 PCR STAT 05/22/2024 11:44 PM UTILIZATION MANAGEMENT UM NURSE EGFR STAT 07/29/2021 11:56 PM CDT DIAGNOSTIC MAMMOGRAM BILATERAL W CHARLES Schedule Routine, Read Routine (OP Routine) 06/25/2018 9:46 AM CDT Lump or mass in breast HEMOGLOBIN A1C Routine 06/02/2017 7:02 AM UTILIZATION MANAGEMENT UM NURSE from Last 3 Months or Most Recently Relevant to Health Maintenance Results * XR Chest PA Lateral 2 Views (05/23/2024 12:17 AM UTILIZATION MANAGEMENT UM NURSE) Anatomical Region Laterality Modality Body, Chest N/A Computed Radiogr aphy 05/23/2024 1:11 AM UTILIZATION MANAGEMENT UM NURSE Narrative 05/23/2024 1:12 AM UTILIZATION MANAGEMENT UM NURSE EXAM DESCRIPTION: XR CHEST PA LATERAL 2 VIEWS REASON FOR STUDY: cough Cough, Fever and SOB Tonight. Ex-Smoker Asthma CHF COPD Diabetic Hx of Stroke- 2014 Hx of Pneumonia TECHNIQUE: 2 radiographic view(s) of the chest. COMPARISON: 07/30/2021 FINDINGS: LUNGS: No focal opacity, pleural effusion, or pneumothorax. HEART/MEDIASTINUM: Cardiac silhouette normal in size. Mediastinal and hilar contours appear normal. LINES/TUBES: None. BONES: No acute osseous abnormality. IMPRESSION: No acute cardiopulmonary abnormality. THIS IS AN ELECTRONICALLY VERIFIED FINAL REPORT 05/23/2024 1:12 AM - Electronically signed by Addy Garcia M.D. KT: KT Report ID: [id number] Reading Location: [id number] Procedure Note Addy Garcia MD - 05/23/2024 EXAM DESCRIPTION: XR CHEST PA LATERAL 2 VIEWS REASON FOR STUDY: cough Cough, Fever and SOB Tonight. Ex-Smoker Asthma CHF COPD DiabeticHx of Stroke- 2014 Hx of Pneumonia TECHNIQUE: 2 radiographic view(s) of the chest. COMPARISON: 07/30/2021 FINDINGS: LUNGS: No focal opacity, pleural effusion, or pneumothorax. HEART/MEDIASTINUM: Cardiac silhouette normal in size. Mediastinal andhilar contours appear normal. LINES/TUBES: None. BONES: No acute osseous abnormality. IMPRESSION: No acute cardiopulmonary abnormality. THIS IS AN ELECTRONICALLY VERIFIED FINAL REPORT 05/23/2024 1:12 AM - Electronically signed by Addy Garcia M.D. KT: SARIAT Report ID: [id number] Reading Location: [place] [address] us Diane Orta MD IMG XR PROCEDURES Final Result * (ABNORMAL) Influenza A/B, RSV, and COVID-19 PCR Nasopharyngeal (05/22/2024 11:44 PM UTILIZATION MANAGEMENT UM NURSE) COVID-19 RNA Negative Negative Influenza A RNA Positive(A) Negative [facility] ([place] Influenza B RNA Negative Negative [facility] ([place]) RSV RNA Negative Negative [facility] Comment: Interpretive data: Testing performed by [facility]. This test is performed using the [facility] Xpert Xpress CoV-2/Flu/RSV plus assay. This is a multiplex, real- time reverse transcriptase PCR assay intended for the qualitative detection of nucleic acid from SARS-CoV-2, influenza A, influenza B, and respiratory syncytial virus. This assay has been cleared by the [place] Food and Drug administration. The performance characteristics have been verified by the [facility]. Results must be considered in the clinical context, and a negative result does not rule out infection. Interpretive Data last revised 2023 Nasopharyngeal 05/22/2024 11 :44 PM UTILIZATION MANAGEMENT UM NURSE 05/22/2024 11:47 PM UTILIZATION MANAGEMENT UM NURSE Narrative [facility] - 05/23/2024 12:35 AM UTILIZATION MANAGEMENT UM NURSE Is the Patient experiencing symptoms consistent with COVID?->Yes us Diane Orta MD LAB MICROBIOLOGY - GENERAL ORDER JAIRO Final Result [facility] ([place] 1 [facility] Department [place] [address] * eGFR (07/29/2021 11:56 PM CDT) eGFR 50 mL/min/1. 73 m2 [facility] ([place] Comment: Interpretive Data Reference Interval Normal >/= 90 mL/min/1.73m2 Mildly decreased* 60 - 89 mL/min/1.73m2 Mildly to moderately decreased 45 - 59 mL/min/1.73m2 Moderately to severely decreased 30 - 44 mL/min/1.73m2 Severely decreased 15 - 29 mL/min/1.73m2 Kidney Failure < 15 mL/min/1.73m2 *Relative to young adult level Estimated glomerular filtration rate is determined by the 2020 CKD-EPI equation recommended by the National Kidney Foundation (A Unifying Approach to GFR Estimation: Recommendations of the NKF-ASK Task Force on Reassessing the Inclusion of Race in Diagnosing Kidney Disease, JASN 2020). The CKD-EPI equation should not be used for patients with unstable renal function and has not been validated in children and those over 70. Current interpretive data was last reviewed 2021. Blood 07/29/2021 11:5 6 PM CDT 07/30/2021 12:04 AM CDT us Flores Velazquez MD LAB BLOOD ORDERABLES Fin al Result [facility] ([place] 1 [facility] Department [place] [address] * Diagnostic Mammogram Bilateral W Charles (06/25/2018 9:46 AM CDT) Anatomical Region Laterality Modality Breast Bilateral Mammography 06/25/2018 9:48 AM CDT Impressions 06/25/2018 9:53 AM CDT 1. BENIGN FINDINGS. 2. RECOMMEND PROCEEDING ON CLINICAL GROUNDS. NEGATIVE RESULTS SHOULD NOT DISSUADE ONE FROM BIOPSY OF A CLINICALLY PALPABLE SUSPICIOUS MASS. IF THE LUMP RETURNS THEN BREAST SONOGRAM COULD BE CONSIDERED FOR FURTHER EVALUATION. BI-RADS 2 Electronically signed by: Jeffrey Guerrier 06/25/2018 9:53 AM CDT DIAGNOSTIC MAMMOGRAM BILATERAL W CHARLES HISTORY: Unspecified lump in unspecified breast. Recently had lump in the upper outer right breast. Patient cannot feel lump at this time. TECHNIQUE: 3 views of each breast were obtained with bilateral breast tomosynthesis. COMPARISON: None available. FINDINGS: Scattered parenchymal densities bilaterally. No suspicious mass or calcification is seen to suggest mammographic evidence of malignancy. Multiple benign calcifications bilaterally, with multiple dermal calcifications. Digital technology was employed plus computer aided detection software (R2) was utilized in interpretation of these images. This facility utilizes a reminder system to notify patient's of yearly mammograms. Leela Cedillo MOLD TOOLING TECHNICIAN IMG MAMMO PROCEDURES Final R esult * (ABNORMAL) Hemoglobin A1c (06/02/2017 7:02 AM UTILIZATION MANAGEMENT UM NURSE) Hgb A1C 10.4(H) 4.0 - 5.6 % [facility] [place] Estimated Average Glucose 252 mg/dL [facility] [place] Comment: The ADA recommends reporting an estimated Average Glucose (eAG) with all Hemoglobin A1c results using the equation derived from a study of 507 normal and diabetic adults. Minority populations were underrepresented and children were not included. (Diabetes Care 31:1709-9377, 2008). The eAG is not equivalent to a fasting glucose. Blood specimen (specimen) 06/02/2017 7:02 AM UTILIZATION MANAGEMENT UM NURSE 06/02/2017 7:25 AM UTILIZATION MANAGEMENT UM NURSE Narrative [facility] ([place]) - 06/02/2017 8:18 AM UTILIZATION MANAGEMENT UM NURSE Gio Louis MD LAB BLOOD ORDERABLES Final Result [facility] ([place] 1 [facility] Department [place] [address] from Last 3 Months or Most Recently Relevant to Health Maintenance Insurance IDPA MEDICARE [facility] OTHER Address: [address] [place] [id number] [employer] MEDICARE [facility] MEDICARE ADVANTAGE IDPA Advance Directives For more information, please contact: [phone] * Full Code (Latest Code Status on File) Date Activated Date Inactivated Comments 10/12/2020 3:59 PM 10/13/2020 8:01 PM * Full Code Date Activated Date Inactivated Comments 05/31/2017 4:46 AM 06/11/2017 9:17 PM * Full Code Date Activated Date Inactivated Comments 05/04/2017 3:52 AM 05/07/2017 7:26 PM Care Teams Loan Reviewer Relationship Specialty Start Date End Date Pavan Ramirez MD PCP - General 05/14/17
--- OUTSIDE RECORDS SUMMARY | 2024-07-21 11:25 | XMS_ITS ---
Author Organization [facility] Care Team Providers Care Retail Loan Originator Name Role Phone aMnny Liu Unavailable Unavailable Care Team Name Role Address Phone Organization Dates Manny Liu PCP [address] [place], [address], [place] (Office): [facility] 06/11/2017 - 06/26/2017 Mental Status Section Date Assessment Total Score Description 06/26/2017 BIMS 15 cognitively int act CAM 0 No delirium ind icated PHQ-9 00 06/20/2017 BIMS 15 cognitively int act CAM 0 No delirium ind icated PHQ-9 00 Problems Problem # Description Date of onset Resolved Date Code CodeSystem Concern Status 1 CELLULITIS OF ABDOMINAL WALL [address] active 2 MORBID (SEVERE) OBESITY DUE TO EXCESS CALORIES [address] active 3 OBSTRUCTIVE SLEEP APNEA (ADULT) (PEDIATRIC) [address] active 4 TYPE 2 DIABETES MELLITUS WITH HYPERGLYCEMIA [address] active 5 WE[address] active 6 ACUTE RESPIRATORY FAILURE, UNSPECIFIED WHETHER WITH HYPOXIA OR HYPERCAPNIA [address] active Reason for Referral No Reasons for Referral Entered Social History Social History Observation Description Start Date End Date Code Code System Current Smoking Status Tobacco smoking consumption unknown 836619455 SNOMED CT Sex Assigned At Female 1975 66856-4 [facility] Vital Signs Code Code System Vitals Name Values and Units Timing Information 9279-1 LOINC Respiratory Rate Value=18.0 Units=/m in 06/22/2017 8462-4 LOINC Blood Pressure-Diastolic Value=68 Un its=mmHg 06/22/2017 8480-6 LOINC Blood Pressure-Systolic Olnbm=255 Un its=mmHg 06/22/2017 8310-5 [facility] Body Temperature Value=98.6 Units= F 06/22/2017 8867-4 [facility] Heart rate Value=70.0 Units=/min 03/2018 8302-2 LOINC Height Value=66.0 Units=Inches 06/22/2017 28188-6 LOINC Weight Gzmvy=136.4 Units=Lbs 10/2017
--- OUTSIDE RECORDS SUMMARY | 2024-07-21 11:25 | XMS_ITS ---
Author Organization [employer] [facility] Care Team Providers Care Meat Manager Name Role Phone Manny Liu Unavailable Unavailable Care Team Name Role Address Phone Organization Dates Manny Liu PCP [address] [place], [address], [place] (Office): [facility] 06/11/2017 - 06/26/2017 Mental Status Section Date Assessment Total Score Description 06/26/2017 BIMS 15 cognitively int act CAM 0 No delirium ind icated PHQ-9 00 06/20/2017 BIMS 15 cognitively int act CAM 0 No delirium ind icated PHQ-9 00 Problems Problem # Description Date of onset Resolved Date Code CodeSystem Concern Status 1 CELLULITIS OF ABDOMINAL WALL [address] active 2 MORBID (SEVERE) OBESITY DUE TO EXCESS CALORIES [address] active 3 OBSTRUCTIVE SLEEP APNEA (ADULT) (PEDIATRIC) [address] active 4 TYPE 2 DIABETES MELLITUS WITH HYPERGLYCEMIA [address] active 5 WEAKNESS [address] active 6 ACUTE RESPIRATORY FAILURE, UNSPECIFIED WHETHER WITH HYPOXIA OR HYPERCAPNIA [address] active Reason for Referral No Reasons for Referral Entered Social History Social History Observation Description Start Date End Date Code Code System Current Smoking Status Tobacco smoking consumption unknown 826762961 SNOMED CT Sex Assigned At Female 1975 16628-6 [facility] Vital Signs Code Code System Vitals Name Values and Units Timing Information 9279-1 [facility] Respiratory Rate Value=18.0 Units=/m in 06/22/2017 8462-4 [facility] Blood Pressure-Diastolic Value=68 Un its=mmHg 06/22/2017 8480-6 [facility] Blood Pressure-Systolic Cgurl=526 Un its=mmHg 06/22/2017 8310-5 [facility] Body Temperature Value=98.6 Units= F 06/22/2017 8867-4 [facility] Heart rate Value=70.0 Units=/min 03/2018 8302-2 [facility] Height Value=66.0 Units=Inches 06/22/2017 22768-5 [facility] Weight Zmjuh=623.4 Units=Lbs 10/2017
--- OUTSIDE RECORDS SUMMARY | 2024-07-21 11:25 | XMS_ITS | Referral Summary ---
Author Organization [facility] Address [address] [place] [address] Care Team Providers Care Marketing Recruiter Name Role Phone Pavan Ramirez MD Primary Care Provider Encounters Date Type Department Care Team Description 05/23/2024 2:09 AM DISPATCH LEAD - 05/23/2024 4:43 AM DISPATCH LEAD Emergency [facility] Emergency Department [address] [place] [address] Diane Orta MD Influenza A (Primary Dx); COPD exacerbation (HCC) Discharge Disposition: Discharge to home or self care from Last 3 Months Allergies Active Allergy Reactions Criticality Noted Date [...] (three) times a day. 90 tablet 06/12/19 Active Additional Information Patient taking differently: 80 mgoralDaily, Reported on 09/27/2020 ALPRAZolam (XANAX) 0.25 mg tablet Take 0.25 mg by mouth nightly as needed 01/17/20 20 Active escitalopram (LEXAPRO) 10 mg tablet Take 10 mg by mouth nightly 01/16/20 20 Active gabapentin (NEURONTIN) 300 mg capsule Take 300 mg by mouth nightly 01/16/20 20 Active meloxicam (MOBIC) 15 mg tablet Take 15 mg by mouth nightly 01/16/20 20 Active metFORMIN (GLUCOPHAGE) 500 mg tablet Take 500 mg by mouth 2 (two) times a day with meals 01/16/20 Active Asmanex Twisthaler 110 mcg/ actuation (30) [...] insulin 06/09/2017 Abdominal wall cellulitis Morbid obesity Immunizations Immunization Administration Dates Next Due Influenza, Quadrivalent, Spl it, Preservative Free, Intramuscular 05/07/2017 Social History Tobacco Use Types Packs/Day Years [...] on file Legal Sex Female 2:26 AM DISPATCH LEAD Gender Identity Not on file Sexual Orientation Not on file Last Filed Vital Signs Vital Sign Reading Time Taken Comments Blood Pressure 130/70 05/22/2024 11:39 PM DISPATCH LEAD Pulse 108 05/22/2024 11:39 PM DISPATCH LEAD Temperature 38.2 C (100.8 F) 05/22/2024 11:39 PM DISPATCH LEAD Respiratory Rate 20 05/22/2024 11:39 PM DISPATCH LEAD Oxygen Saturation 97% 05/23/2024 3:32 AM DISPATCH LEAD Inhaled Oxygen Concentration - - Weight 136.1 kg (300 lb) 05/22/2024 11:39 PM DISPATCH LEAD Height 165.1 cm (5' 5 ) 05/22/2024 11:39 PM DISPATCH LEAD Body Mass Index 49.92 05/22/2024 11:39 PM DISPATCH LEAD Plan of Treatment Not on file Medical Devices Implanted Type Area Lead Athlete Device Identifier Shelf Expiration Date Model / Serial / Lot [employer]/C R Bard [id number] Ventralight St Sepra 8x6in Uncoated Monofilament Lightweight - [id number] Implanted:Qty: 1 on 10/12/2020 by Timoteo Allen MD at [facility] N/A: Abdomen [employer] Bard 05/10/2022 [id number] / / [id number] Procedures Procedure Name Priority Date/Time Associated Diagnosis Comments XR CHEST PA LATERAL 2 VIEWS ED 05/23/2024 12:17 AM DISPATCH LEAD INFLUENZA A/B, RSV, AND COVID-19 PCR STAT 05/22/2024 11:44 PM DISPATCH LEAD EGFR STAT 07/29/2021 11:56 PM CDT DIAGNOSTIC MAMMOGRAM BILATERAL W CHARLES Schedule Routine, Read Routine (OP Routine) 06/25/2018 9:46 AM CDT Lump or mass in breast HEMOGLOBIN A1C Routine 06/02/2017 7:02 AM DISPATCH LEAD from Last 3 Months or Most Recently Relevant to Health Maintenance Results * XR Chest PA Lateral 2 Views (05/23/2024 12:17 AM DISPATCH LEAD) Anatomical Region Laterality Modality Body, Chest N/A Computed Radiogr aphy 05/23/2024 1:11 AM DISPATCH LEAD Narrative 05/23/2024 1:12 AM DISPATCH LEAD EXAM DESCRIPTION: XR CHEST PA LATERAL 2 [...] Electronically signed by Addy Garcia M.D. KT: SARITA Report ID: [id number] Reading Location: [id number] Procedure Note Addy Garcia MD - 05/23/2024 [...] Addy Garcia M.D. KT: KT Report ID: [id number] Reading Location: [place] [address] [place] Diane Orta MD IMG XR PROCEDURES Final Result * (ABNORMAL) Influenza A/B, RSV, and COVID-19 PCR Nasopharyngeal (05/22/2024 11:44 PM DISPATCH LEAD) COVID-19 RNA Negative Negative Influenza A RNA Positive(A) Negative [facility]) Influenza B RNA Negative Negative [facility] ([place]) RSV RNA Negative Negative [facility] ([place]) Comment: Interpretive data: Testing performed by [facility]. This test is performed using the [employer] Xpert Xpress CoV-2/Flu/RSV plus assay. This is a multiplex, real- time reverse transcriptase PCR assay intended for the qualitative detection of nucleic acid from SARS-CoV-2, influenza A, influenza B, and respiratory syncytial virus. This assay has been cleared by the [place] Food and Drug administration. The performance characteristics have been verified by the [facility]. Results must be considered in the clinical context, and a negative result does not rule out infection. Interpretive Data last revised 2023 Nasopharyngeal 05/22/2024 11 :44 PM DISPATCH LEAD 05/22/2024 11:47 PM DISPATCH LEAD [facility]ative [facility] - 05/23/2024 12:35 AM DISPATCH LEAD Is the Patient experiencing symptoms consistent with COVID?->Yes Diane Orta MD LAB MICROBIOLOGY - GENERAL ORDER JAIRO Final Result [facility] ([place]) 1 [facility] Department [place] [address] * eGFR (07/29/2021 11:56 PM CDT) eGFR 50 mL/min/1. 73 m2 [facility] ([place]) Comment: Interpretive Data Reference Interval Normal >/= [...] MD LAB BLOOD ORDERABLES Fin al Result [facility] ([place] 1 [facility] Department [place] [address] * Diagnostic Mammogram Bilateral [place] (06/25/2018 [...] notify patient's of yearly mammograms. Leela Cedillo NP IMG MAMMO PROCEDURES Final R esult * (ABNORMAL) Hemoglobin A1c (06/02/2017 7:02 AM DISPATCH LEAD) Hgb A1C 10.4(H) 4.0 - 5.6 % [facility] ([place]) Estimated Average Glucose 252 mg/dL [facility] ([place]) Comment: The ADA recommends reporting an estimated Average Glucose (eAG) with all Hemoglobin A1c results using the equation derived from a study of 507 normal and diabetic adults. Minority populations were underrepresented and children were not included. (Diabetes Care 31:0314-2041, 2008). The eAG is not equivalent to a fasting glucose. Blood specimen (specimen) 06/02/2017 7:02 AM DISPATCH LEAD 06/02/2017 7:25 AM DISPATCH LEAD Narrative [facility] ([place]) - 06/02/2017 8:18 AM DISPATCH LEAD iGo Louis MD LAB BLOOD ORDERABLES Final Result [facility] ([place]) 1 [facility] Department [place] [address] from Last 3 Months or Most Recently Relevant to Health Maintenance Insurance IDPA MEDICARE [facility] [employer] MEDICARE [facility] Address: [address] [address] [place] [address] [facility] MEDICARE ADVANTAGE IDPA Advance Directives For more information, please contact: [phone] * Full Code (Latest Code Status on File) Date Activated Date Inactivated Comments 10/12/2020 3:59 PM 10/13/2020 8:01 PM * Full Code Date Activated Date Inactivated Comments 05/31/2017 4:46 AM 06/11/2017 9:17 PM * Full Code Date Activated Date Inactivated Comments 05/04/2017 3:52 AM 05/07/2017 7:26 PM Care Teams Marketing Recruiter Relationship Specialty Start Date End Date Pavan Ramirez MD PCP - General 05/14/17
--- OUTSIDE RECORDS SUMMARY | 2024-07-21 11:25 | XMS_ITS | Clinical Summary ---
Author Organization [facility] Address [address] [place] [id number] Care Team Providers Care Pre Certification Specialist Name Role Phone Unavailable Primary Care Provider Unavailabl e Social History Tobacco Use Types Packs/Day Years Used Date Smoking Tobacco: Never Assessed Comments Unknown Sex and Gender Information Value Date Recorded Sex Assigned at Not on file Legal Sex Female 3:17 PM DAY CARE ATTENDANT Gender Identity Not on file Sexual Orientation Not on file Plan of Treatment Health Maintenance Due Date Last Done Comments Hepatitis C Virus (HCV) Screening 1977 TdaP Immunization 1977 Hepatitis B Immunization (1 of 3 - 19+ 3-dose series) 1996 Pap Smear 1998 Cervical Cancer Screening (CCS) 2007 HPV/Cotest 2007 Discussion re Starting/Frequ ency of Mammograms 2017 Colonoscopy 2022 Colorectal Cancer Screening 2022 Influenza Immunization (#1) 2023 SARS-COV-2 Immunization ( season) 2023 Respiratory Syncytial Virus (RSV) Immunization (Adult) (1 - 1-dose 75+ series) 2052 Meningococcal Immunization (ACWY) Aged Out No longer eligible based on patient's age to complete this topic Pneumococcal Immunization Combined Aged Out No longer eligible based on patient's age to complete this topic Rotavirus Immunization Aged Out No lo nger eligible based on patient's age to complete this topic
[2024-07-21 11:36] LABS: Creatinine Urine 114.3 mg/dL
[2024-07-21 11:41] LABS: MALB Creatinine Ratio 37.8 mg/g (0-30); Microalbumin Urine Random 43.2 mg/L (0-16.7)
[2024-07-21 11:43] LABS: Alanine Aminotransferase 34 U/L (6-35); Albumin Level 4.2 g/dL (3.5-5.1); Alkaline Phosphatase 109 U/L (38-126); Anion Gap 9 mmol/L (4-12); Aspartate Amino Transferase 24 U/L (14-36); Bilirubin,Total 0.3 mg/dL (0.2-1.3); Blood Urea Nitrogen 21 mg/dL (7-17); Calcium 9.1 mg/dL (8.4-10.2); Carbon Dioxide 27 mmol/L (22-30); Chloride 101 mmol/L (98-107); Cholesterol 191 mg/dL (0-200); Estimated Glomerular Filt Rate > 60; Glucose 184 mg/dL (65-110); HDL Direct 45 mg/dL; Potassium 4.3 mmol/L (3.4-5.0); Sodium 137 mmol/L (137-145); Triglycerides 133 mg/dL (<150)
[2024-07-21 11:54] LABS: LDL Cholesterol Direct 111 mg/dL
[2024-07-21 12:28] LABS: Free T4 Free Thyroxine 1.08 ng/dL (0.78-2.19)
== END 2024-07-21 10:37 | disposition home or self-care (01) ==
PROVIDERS: PCP Family Medicine; Visit Provider Family Medicine
DX: E03.9 Hypothyroidism, unspecified (principal); E78.2 Mixed hyperlipidemia; E11.29 Type 2 diabetes mellitus with other diabetic kidney complication; N18.31 Chronic kidney disease, stage 3a; R80.9 Proteinuria, unspecified; R60.1 Generalized edema; Z13.220 Encounter for screening for lipoid disorders
CPT/HCPCS: 36415; 80048; 80061; 80076; 82043; 84439; 84443; 85025